=== PATIENT | female | born 1970 ===

== ENCOUNTER 2020-03-12 14:57 | Outpatient (REF) | payer OTHER, SELFPAY ==
[2020-03-14 23:55] LABS: SARS-CoV-2 RNA Undetected (Undetected); SARS-CoV-2 Specimen Source Nasal
== END 2020-03-12 15:17 ==
LOC: NCHCN 14:57
PROVIDERS: Visit Provider Nurse Practitioner Family
DX: J02.9 Acute pharyngitis, unspecified (principal)
CPT/HCPCS: U0003